=== PATIENT | female | born 1985 | race Caucasian/White ===

== ENCOUNTER 2016-12-08 13:13 | Outpatient (CLI) | payer MEDICARE | END 2016-12-08 13:14 | disposition home or self-care (01) | DX: N63 Unspecified lump in breast (principal) | CPT/HCPCS: 76642; G0204 ==

== ENCOUNTER 2017-10-09 13:40 | Outpatient (CLI) | payer MEDICARE | END 2017-10-09 13:41 | disposition EMS.NT | LOC: EMS 13:40 | PROVIDERS: ATTEND Surgery | DX: R07.9 Chest pain, unspecified (principal); R45.1 Restlessness and agitation ==

== ENCOUNTER 2018-03-29 16:50 | Outpatient (CLI) | payer OTHER, MEDICARE | END 2018-03-29 16:51 | disposition critical access hospital (66) | LOC: EMS 16:50 | PROVIDERS: ATTEND Surgery | DX: M54.5 Low back pain (principal); R25.2 Cramp and spasm; V43.62XA Car passenger injured in collision with other type car in traffic accident, initial encounter; Y92.414 Local residential or business street as the place of occurrence of the external cause | CPT/HCPCS: A0425; A0429 ==

== ENCOUNTER 2018-03-29 17:15 | Emergency (ER) | payer OTHER, MEDICARE ==
[2018-03-29] MEDS ORDERED: IBUPROFEN 600 MG TABLET PO STA (17:41)
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
[2018-03-29] MEDS ORDERED: oxyCODONE 5 MG TABLET PO STA (18:49)
[2018-03-29 19:04] VITALS: BP 127/104
== END 2018-03-29 19:06 | disposition home or self-care (01) ==
LOC: EDUNIT# → ED 17:15
DX: S32.10XA Unspecified fracture of sacrum, initial encounter for closed fracture (principal); V43.62XA Car passenger injured in collision with other type car in traffic accident, initial encounter
CPT/HCPCS: 72170; 72220; 99283; A9270

== ENCOUNTER 2018-09-26 01:02 | Emergency (ER) | payer MEDICARE, OTHER ==
[2018-09-26 01:17] VITALS: BP 140/89
--- NOTE | 2018-09-26 01:17 | ED Physician Documentation ---
PD HPI URI - Stated complaint Stated Complaint: LT EAR PAIN - Chief complaint Chief Complaint: Heent - History obtained from History obtained from: Patient - History of Present Illness Timing - onset: How many days ago (few) Timing duration: Days Timing details: Gradual onset, Still present (hurting "excruciating" the past 2 days or so) Associated symptoms: Ear pain, Nasal congestion. No: Fever, Dry cough Contributing factors: No: Sick contact, Travel Similar symptoms before: Has not had sx before Recently seen: Not recently seen Review of Systems Constitutional: denies: Fever, Chills, Myalgias Ears: reports: Loss of hearing, Ear pain. denies: Drainage/discharge Nose: reports: Congestion. denies: Rhinorrhea / runny nose Throat: denies: Sore throat Respiratory: denies: Cough GI: denies: Abdominal Pain, Nausea, Vomiting, Diarrhea Skin: denies: Rash, Lesions PD PAST MEDICAL HISTORY - Past Medical History Past Medical History: Yes Cardiovascular: None Respiratory: None Neuro: None Psych: Depression, Anxiety, Panic attacks - Past Surgical History Past Surgical History: No - Present Medications Home Medications: Ambulatory Orders Medication Instructions Recorded Confirmed FLUoxetine [PROzac] 100 mg PO DAILY 09/26/13 09/26/18 Cephalexin [Keflex] 500 mg PO TID #21 capsule 09/26/18 Cetirizine [ZyrTEC] 10 mg PO DAILY #15 tablet 09/26/18 Hydrocodone/Acetaminophen [[place] 1 each PO Q6H PRN #12 tablet 09/26/18 5-325 Tablet] Naproxen 500 mg PO BID #20 tablet 09/26/18 - Allergies Allergies/Adverse Reactions: Allergies Allergy/AdvReac Type Severity Reaction Status Date / Time acetaminophen [From Vicodin] Allergy Mild Rash Verified 09/26/18 01:06 bismuth subsalicylate Allergy unknown Verified 09/26/18 01:06 [From Pepto-Bismol] Sulfa (Sulfonamide Allergy unknown Verified 09/26/18 01:06 Antibiotics) Birthcontrol pills Allergy Intermediate Respiratory Uncoded 09/26/18 01:06 - Social History Does the pt smoke?: Yes Smoking Status: Current every day smoker Does the pt drink ETOH?: Yes Does the pt have substance abuse?: Yes - Immunizations Immunizations are current?: Yes - POLST Patient has POLST: No PD ED PE NORMAL - Vitals Vital signs reviewed: Yes - General General: Alert and oriented X 3, Well developed/nourished, Other (seesm uncomfortable) - HEENT HEENT: Moist mucous membranes, Pharynx benign. No: Ears normal (right is okay. Left with canal redness and some swelling medially. THe TM is also red without large swelling. No perf.) - Neck Neck: Supple, no meningeal sign, No adenopathy - Cardiac Cardiac: RRR, No murmur - Respiratory Respiratory: Clear bilaterally Results - Vitals Vitals: Vital Signs - 24 hr 09/26/18 09/26/18 01:05 01:46 Temperature 36.0 C L 36.5 C Heart Rate 129 H 90 Respiratory 20 14 Rate Blood Pressure 140/89 H O2 Saturation 99 98 Oxygen O2 Source Room air PD MEDICAL DECISION MAKING - ED course Complexity details: reviewed results, considered differential (ear TM is red with some canal inflammation as well. ), d/w patient Departure - Departure Disposition: 01 Home, Self Care Clinical Impression: Ear pain, left Otitis media Qualifiers: Otitis media type: suppurative Chronicity: acute Laterality: left Recurrence: non-recurrent Spontaneous tympanic membrane rupture: without spontaneous rupture Qualified Code(s): H66.002 - Acute suppurative otitis media without spontaneous rupture of ear drum, left ear Condition: Stable Record reviewed to determine appropriate education?: Yes Instructions: ED Otitis Media Acute Adult Prescriptions: Cephalexin [Keflex] 500 mg PO TID #21 capsule Cetirizine [ZyrTEC] 10 mg PO DAILY #15 tablet Hydrocodone/Acetaminophen [[place] 5-325 Tablet] 1 each PO Q6H PRN #12 tablet PRN Reason: Pain Naproxen 500 mg PO BID #20 tablet Comments: Take the cephalexin 3 times a day for a week for the infection. You can use the antibiotic eardrops a few times a day for the next few days. Naproxen anti- inflammatory twice daily for the next week or so. Cetirizine for fluid congestion in the middle ear. Add hydrocodone if needed for pains. Discharge Date/Time: 09/26/18 01:59
[2018-09-26] MEDS ORDERED: NAPROXEN 250 MG TABLET PO STA (01:35)
[2018-09-26] MEDS ORDERED: HYDROcod/ACETAM 5/325 MG TABLET PO STA (01:35)
[2018-09-26] MEDS ORDERED: NEOMYCIN/POLYMYX/HC OTIC DROPS LEFTEAR STA (01:35)
[2018-09-26] MEDS ORDERED: cephALEXin 250 MG CAPSULE PO STA (01:35)
== END 2018-09-26 01:59 | disposition home or self-care (01) ==
LOC: ED 01:02
DX: H66.002 Acute suppurative otitis media without spontaneous rupture of ear drum, left ear (principal); F17.200 Nicotine dependence, unspecified, uncomplicated
CPT/HCPCS: 99283; A9270

== ENCOUNTER 2018-11-25 21:39 | Outpatient (CLI) | payer SELFPAY | END 2018-11-25 21:40 | disposition critical access hospital (66) | LOC: EMS 21:39 | PROVIDERS: ATTEND Surgery | DX: H92.02 Otalgia, left ear (principal) | CPT/HCPCS: A0425; A0427 ==

== ENCOUNTER 2018-11-25 22:21 | Emergency (ER) | payer SELFPAY ==
[2018-11-25 22:28] VITALS: BP 117/69
--- NOTE | 2018-11-25 22:35 | ED Physician Documentation ---
History of Present Illness - Stated complaint Stated Complaint: EAR ACHE - Chief complaint Chief Complaint: Heent - History obtained from History obtained from: Patient, Family - Additonal information Additional information: Patient is a 33-year-old female presenting with left-sided ear pain over the past several days. Patient has recurrent visits for similar ear pain and diagnosis of otitis media per chart review. Patient reports that she has completed all antibiotic therapies and is no longer taking any antibiotics. Patient reports that she has used earwax drops to the left ear, but otherwise has not placed anything inside the ear canal.Patient also complains of purulent drainage from left ear, but denies changes to the external part of left ear. Patient and significant other also denies fever, URI symptoms, nasal congestion, rhinorrhea, sore throat.No significant improving or worsening factors to her symptoms noted. Review of Systems Constitutional: denies: Fever Ears: reports: Ear pain PD PAST MEDICAL HISTORY - Past Medical History Cardiovascular: None Respiratory: None Neuro: None Endocrine/Autoimmune: None Psych: Depression, Anxiety, Panic attacks - Past Surgical History Past Surgical History: No - Present Medications Home Medications: Ambulatory Orders Medication Instructions Recorded Confirmed FLUoxetine [PROzac] 100 mg PO DAILY 09/26/13 09/26/18 Cephalexin [Keflex] 500 mg PO TID #21 capsule 09/26/18 Cetirizine [ZyrTEC] 10 mg PO DAILY #15 tablet 09/26/18 Hydrocodone/Acetaminophen [[place] 1 each PO Q6H PRN #12 tablet 09/26/18 5-325 Tablet] Naproxen 500 mg PO BID #20 tablet 09/26/18 Amox/Clav 875/125 [Augmentin] 1 each PO Q12H #14 tablet 10/05/18 Hydrocodone/Acetaminophen 1 - 2 each PO Q6H PRN #14 tablet 10/05/18 [Hydrocodon-Acetaminophen 5-325] - Allergies Allergies/Adverse Reactions: Allergies Allergy/AdvReac Type Severity Reaction Status Date / Time bismuth subsalicylate Allergy unknown Verified 10/05/18 16:36 [From Pepto-Bismol] Sulfa (Sulfonamide Allergy unknown Verified 10/05/18 16:36 Antibiotics) Birthcontrol pills Allergy Intermediate Respiratory Uncoded 10/05/18 16:36 - Social History Does the pt smoke?: Yes Smoking Status: Current every day smoker Does the pt drink ETOH?: Yes Does the pt have substance abuse?: Yes - Immunizations Immunizations are current?: Yes - POLST Patient has POLST: No PD ED PE NORMAL - General General: Other (Disheveled, scabbing indicative of skin picking or recreational drug use of her face and other areas of body, moaning, sitting in position on bed, crying.) - HEENT HEENT: Atraumatic, Ears normal (Left TM nonbulging, non-erythematous without effusion. No debris in ear canal. No changes to external left ear such as swelling or redness. No mastoid tenderness.), Moist mucous membranes, Pharynx benign (No evidence of uvulitis, uvular deviation, peritonsillar abscess or other changes.) - Cardiac Cardiac: RRR, No murmur - Respiratory Respiratory: No respiratory distress, Clear bilaterally - Abdomen Abdomen: Normal bowel sounds, Soft, Non tender, Non distended - Derm Derm: Normal color, Warm and dry, No rash, Other (Skin changes as described above, appearance of skin picking.) - Neuro Neuro: No motor deficit, No sensory deficit - Psych Psych: Other (Extremely histrionic) Results - Vitals Vitals: Vital Signs - 24 hr 11/25/18 22:24 Heart Rate 105 H Respiratory 16 Rate Blood Pressure 117/69 O2 Saturation 98 Oxygen O2 Source Room air PD MEDICAL DECISION MAKING - ED course Complexity details: reviewed old records, considered differential, d/w patient, d/w family ED course: Patient presenting with left sided otalgia. Do not find evidence of otitis media, otitis externa, mastoiditis, ruptured TM. Patient also denies symptoms of URI, sinusitis, and headache including migraine. Physical exam does not reveal evidence of pharyngitis, tonsillitis, or peritonsillar abscess. Do have concern for drug-seeking behavior, particularly given multiple previous ED visits for similar symptoms and obtaining not only antibiotics, but narcotics. Patient also received narcotics by ambulance in route to the ED today. Patient has changes in her physical exam indicative of likely methamphetamine use as well. At this time, I do not find evidence of acute localized or systemic infection. Do not find evidence of other acute disease process and offered ibuprofen/Tylenol for discomfort, which was provided in ED. However, do not feel patient requires other interventions or medications while in the ED prescriptions for home. Discussed supportive cares, follow-up with ENT as she has recurrent ear complaints, and return precautions. Patient and significant other voiced understanding. Departure - Departure Disposition: Home, Self Care Clinical Impression: Acute ear pain Qualifiers: Laterality: left Qualified Code(s): H92.02 - Otalgia, left ear Condition: Good Instructions: ED Acute Pain [facility] Follow-Up: [facility] [place] [Provider Group] - Within 3 Days Comments: Recommend ibuprofen/Tylenol to help with pain and inflammation. Recommend contacting [facility] in [place] tomorrow to establish follow-up a ppointment as you have had multiple ear infections and have recurrent ear pain. Recommend against applying anything to the external part of the ear or inside the ear, even using Q-tips as this could cause discomfort. Return to ED sooner if experience pus drainage from the ear, fever, or other concerns.
[2018-11-25] MEDS ORDERED: ACETAMINOPHEN 325 MG TABLET PO STA (22:42)
[2018-11-25] MEDS ORDERED: IBUPROFEN 600 MG TABLET PO STA (22:42)
== END 2018-11-25 22:52 | disposition home or self-care (01) ==
LOC: EDUNIT# → ED 22:21
DX: H92.02 Otalgia, left ear (principal); F17.200 Nicotine dependence, unspecified, uncomplicated; F63.89 Other impulse disorders
CPT/HCPCS: 99282; 99283; A9270

== ENCOUNTER 2019-09-03 11:12 | Emergency (ER) | payer SELFPAY ==
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
[2019-09-03 12:42] VITALS: BP 100/60
== END 2019-09-03 12:41 | disposition home or self-care (01) ==
LOC: ED 11:12
DX: L03.811 Cellulitis of head [any part, except face] (principal); R59.0 Localized enlarged lymph nodes; F17.200 Nicotine dependence, unspecified, uncomplicated
CPT/HCPCS: 99282; 99283

== ENCOUNTER 2020-06-05 17:50 | Emergency (ER) | payer OTHER ==
[2020-06-05] MEDS ORDERED: IBUPROFEN 800 MG TABLET PO STA (18:08)
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
[2020-06-05 19:08] VITALS: BP 117/78
== END 2020-06-05 19:09 | disposition home or self-care (01) ==
LOC: ED 17:50
DX: S70.11XA Contusion of right thigh, initial encounter (principal); Y04.2XXA Assault by strike against or bumped into by another person, initial encounter; F17.200 Nicotine dependence, unspecified, uncomplicated
CPT/HCPCS: 73552; 99282; 99283; A9270

== ENCOUNTER 2020-11-13 08:00 | Outpatient (CLI) | payer MEDICARE | END 2020-11-13 23:59 | disposition home or self-care (01) | LOC: LAB.R 08:00 | PROVIDERS: ATTEND Physician Assistant | DX: H60.391 Other infective otitis externa, right ear (principal) | CPT/HCPCS: 87070; 87205 ==

== ENCOUNTER 2020-12-11 11:41 | Emergency (ER) | payer SELFPAY ==
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
[2020-12-11] MEDS ORDERED: ACETAMINOPHEN 325 MG TABLET PO STA (13:11)
[2020-12-11] MEDS ORDERED: CHERRY SYRUP 10 ML UDC PO ONE (13:11)
[2020-12-11] MEDS ORDERED: ACYCLOVIR 200 MG CAPSULE PO STA (13:11)
[2020-12-11] MEDS ORDERED: DEXAMETHASONE 10 MG/ML VIAL PO STA (13:11)
[2020-12-11 13:22] VITALS: BP 103/60
== END 2020-12-11 13:49 | disposition home or self-care (01) ==
LOC: ED 11:41
DX: G50.1 Atypical facial pain (principal); H92.01 Otalgia, right ear; F17.200 Nicotine dependence, unspecified, uncomplicated
CPT/HCPCS: 99282; 99284; A9270

== ENCOUNTER 2021-06-18 01:47 | Emergency (ER) | payer SELFPAY ==
[2021-06-18] MEDS ORDERED: LORazepam 2 MG/ML VIAL IM STA (02:00)
[2021-06-18] MEDS ORDERED: KETOROLAC 60 MG/2 ML VIAL IM STA (02:00)
[2021-06-18] MEDS ORDERED: HYDROmorphone 1 MG/ML CARPUJECT IM STA (02:11)
--- NOTE | 2021-06-18 06:14 | ED Physician Documentation ---
History of Present Illness - Stated complaint Stated Complaint: FACIAL PAIN - Chief complaint Chief Complaint: Heent - History obtained from History obtained from: Patient - History of Present Illness Timing: How many hours ago (4) Pain level max: 10 Pain level now: 10 Quality: sharp Improved by: nothing Worsened by: no exacerbating factors - Additonal information Additional information: c/o four hours of severe right-sided facial pain. no inciting incident, no exacerbating nor ameliorating factors. She is yelling and crying quite loudly in ED. H+P and ROS are delayed, as is gathering basic identifying information (simply getting her to say her first and last name took an inordinate amount of time) all because she is mostly screaming, yelling, and wailing loudly, even when asked to stop doing so just long enough to provide her name or yes/no answers to simple questions. she eventually is able to provide name and answers to some questions. She says this pain has been severe x 4 days although she has a chronic/recurrent component. She says she takes medications for it, one is flexeril, another begins with a c but is inaccessible right now (she is crying and thus very difficult to understand, but it sounds like whatever medication it is, it is in storage and she cannot get to it). She describes her problem as having been described to her as an impingement on a facial nerve that causes pain and slow damage to the nerve over time., as well as these unilateral, episodic severed headaches. When I ask if shes seen a neurologist, she says she is working on getting in to see one; I had her clarify that she has not yet seen a neurologist for these chronic, recurrent headaches. Review of Systems Constitutional: reports: Reviewed and negative Eyes: reports: Reviewed and negative Ears: reports: Reviewed and negative Nose: reports: Reviewed and negative Throat: reports: Reviewed and negative Cardiac: reports: Reviewed and negative Respiratory: reports: Reviewed and negative GI: reports: Reviewed and negative Skin: denies: Rash Musculoskeletal: reports: Reviewed and negative Neurologic: reports: Headache PD PAST MEDICAL HISTORY - Past Medical History Cardiovascular: None Respiratory: None Neuro: None Endocrine/Autoimmune: None Psych: Depression, Anxiety, Panic attacks - Past Surgical History Past Surgical History: No - Present Medications Home Medications: Ambulatory Orders Medication Instructions Recorded Confirmed carBAMazepine [TEGretol] 100 mg PO BID #28 tablet 06/18/21 - Allergies Allergies/Adverse Reactions: Allergies Allergy/AdvReac Type Severity Reaction Status Date / Time Sulfa (Sulfonamide Allergy Severe Respiratory Verified 06/18/21 01:54 Antibiotics) bismuth subsalicylate Allergy unknown Verified 06/18/21 01:55 [From Pepto-Bismol] Birthcontrol pills Allergy Intermediate Respiratory Uncoded 06/18/21 01:55 - Social History Does the pt smoke?: Yes Smoking Status: Current every day smoker Does the pt drink ETOH?: Yes Does the pt have substance abuse?: Yes - Immunizations Immunizations are current?: Yes - POLST Patient has POLST: No PD ED PE NORMAL - Vitals Vital signs reviewed: Yes - General General: Alert and oriented X 3, No acute distress (moaning loadly in plain), Well developed/nourished, Other (lying face-down on stretcher, no eye contact (keeps eyes closed except briefly for EOMI exam), holds hands over right side of fac) - HEENT HEENT: Atraumatic, PERRL, EOMI, Ears normal, Moist mucous membranes, Pharynx benign - Neck Neck: Supple, no meningeal sign, No adenopathy - Cardiac Cardiac: RRR, No murmur - Respiratory Respiratory: No respiratory distress, Clear bilaterally - Derm Derm: Normal color, Warm and dry, No rash - Free text exam Free text exam: no temporal scalp tenderness bilaterally. no rash, no erythema. external ear and auditory canal and TM are all normal (right side, where symptoms are). No facial tenderness to palpation, and no pain elicited with opening/closing jaw at TMJ (no click/pop). She describes her pain in a distribution from anterior to right ear and continuing anteriorly to anterior mid face to midline. Results - Vitals Vitals: Vital Signs - 24 hr 06/18/21 06/18/21 01:48 06:50 Temperature 35.2 C L 36.7 C Heart Rate 98 83 Respiratory 18 16 Rate Blood Pressure 135/82 H 127/83 H O2 Saturation 98 100 Oxygen O2 Source Room air PD MEDICAL DECISION MAKING - ED course Complexity details: reviewed old records, reviewed results, re-evaluated patient, considered differential, d/w patient ED course: She is given toradol and lorazepam IM which appeared to provide good relief , as she subsequently slept quiely for a few hours in ED. She was offered IM dilaudid, but she was very clear in wanting to avoid opiates. At the same time, she repeatedly requests something to just knock me out. Given that the toradol and lorazpam allowed for few hours of quiet sleep, and she was no longer wailing loudly upon waking, plan is d/c with rx for carbamazepine 100mg PO BID; her symptoms sound possibly c/w with trigeminal neuralgia and thus reasonable to trial on this first-line medication. I discussed this with her but she was difficult to get to focus on the discharge instruction review, was more interested in falling back asleep although she mumbled that she was understanding of the plan to discharge and that there was to be a prescription sent to her pharmacy Departure - Departure Disposition: 01 Home, Self Care Clinical Impression: Facial pain Condition: Good Instructions: ED Neuralgia Trigeminal Follow-Up: Norah Miranda ARNP [Physician No Access] - Prescriptions: carBAMazepine [TEGretol] 100 mg PO BID #28 tablet Comments: I suspect your pain is being caused by trigeminal neuralgia but this diagnosis is best made by a specialist (neurology); you should follow up with your primary care provider for further evaluation of these symptoms. A prescription for carbamazepine has been electronically submitted to [facility] in [place]. This is one of the more effective medications for trigeminal neuralgia. Discharge Date/Time: 06/18/21 06:50
[2021-06-18 06:51] VITALS: BP 127/83
== END 2021-06-18 06:50 | disposition home or self-care (01) ==
LOC: ED 01:47
DX: R51.9 Headache, unspecified (principal); F17.200 Nicotine dependence, unspecified, uncomplicated
CPT/HCPCS: 96372; 99283; 99284; J2060

== ENCOUNTER 2022-09-11 14:47 | Emergency (ER) | payer SELFPAY ==
[2022-09-11 15:02] VITALS: BP 110/74
[2022-09-11] MEDS ORDERED: MELOXICAM 7.5 MG TABLET PO STA (15:09)
[2022-09-11] MEDS ORDERED: methocarbamoL 500 MG TABLET PO STA (15:09)
--- NOTE | 2022-09-11 15:26 | ED Physician Documentation ---
History of Present Illness - Stated complaint Stated Complaint: NECK PX - Chief complaint Chief Complaint: General - History obtained from History obtained from: Patient - History of Present Illness Timing: How many days ago (2) Pain level max: 7 Pain level now: 4 - Additonal information Additional information: Patient is a 37-year-old female who presents to the emergency department left- sided neck pain. This started 2 days ago. She states that she has been sleeping on the floor/couch of a friend. She states the pain is gradually worsened throughout the day. Worse with movement, better with rest. No numbness or tingling. Has not taken anything for the pain. No fevers. No chills. Denies any possibility of . No chest pain. No back pain. Review of Systems Constitutional: denies: Fever, Chills Respiratory: denies: Cough GI: denies: Abdominal Pain, Nausea, Vomiting, Diarrhea : denies: Now EGA Skin: denies: Rash Musculoskeletal: denies: Back pain Neurologic: denies: Focal weakness, Confused, Headache PD PAST MEDICAL HISTORY - Past Medical History Cardiovascular: None Respiratory: None Neuro: None Endocrine/Autoimmune: None Psych: Depression, Anxiety, Panic attacks - Past Surgical History Past Surgical History: No - Present Medications Home Medications: Ambulatory Orders Medication Instructions Recorded Confirmed Meloxicam [Mobic] 7.5 mg PO BID PRN #20 tablet 09/11/22 methocarbamoL [Robaxin] 500 mg PO Q6H PRN #20 tablet 09/11/22 - Allergies Allergies/Adverse Reactions: Allergies Allergy/AdvReac Type Severity Reaction Status Date / Time Sulfa (Sulfonamide Allergy Severe Respiratory Verified 09/11/22 14:57 Antibiotics) bismuth subsalicylate Allergy unknown Verified 09/11/22 14:57 [From Pepto-Bismol] Birthcontrol pills Allergy Intermediate Respiratory Uncoded 06/18/21 01:55 - Social History Does the pt smoke?: Yes Smoking Status: Current every day smoker Does the pt drink ETOH?: Yes Does the pt have substance abuse?: Yes - Immunizations Immunizations are current?: Yes - POLST Patient has POLST: No PD ED PE NORMAL - Vitals Vital signs reviewed: Yes - General General: Alert and oriented X 3, No acute distress - HEENT HEENT: PERRL (No midline tenderness to palpation or percussion. No step-off or deformity. Mild paraspinal spasm left paracervical. Reproduces her pain.), Moist mucous membranes, Pharynx benign - Neck Neck: No bony TTP, No JVD, No bruit - Cardiac Cardiac: RRR, Strong equal pulses - Respiratory Respiratory: No respiratory distress, Clear bilaterally - Back Back: No spinal TTP - Derm Derm: Warm and dry - Neuro Neuro: Alert and oriented X 3, psychiatric therapist 2-12 intact, No motor deficit, No sensory deficit, Normal speech Eye Opening: Spontaneous Motor: Obeys Commands Verbal: Oriented GCS Score: 15 - Psych Psych: Normal mood, Normal affect Results - Vitals Vitals: Vital Signs - 24 hr 09/11/22 14:57 Temperature 37.2 C Heart Rate 112 H Respiratory 16 Rate Blood Pressure 110/74 O2 Saturation 96 Oxygen O2 Source Room air PD Medical Decision Making - ED course Complexity details: considered differential, d/w patient ED course: 37-year-old female with what appears to be a left-sided neck spasm. No indication for emergent imaging. No indication for CT scan, x-rays. No neurological deficits. We will place on anti-inflammatories and muscle relaxants for home and have her follow-up with her PCP for further care. Patient counseled regarding signs and symptoms for which I believe and urgent re-evaluation would be necessary. Patient with good understanding of and agreement to plan and is comfortable going home at this time This document was made in part using voice recognition software. While efforts are made to proofread this document, sound alike and grammatical errors may occur. Departure - Departure Disposition: 01 Home, Self Care Clinical Impression: Neck muscle spasm Condition: Good Instructions: ED Spasm Neck No Injury Follow-Up: your,doctor in 3 days if not better [Other] Prescriptions: Meloxicam [Mobic] 7.5 mg PO BID PRN #20 tablet PRN Reason: Pain methocarbamoL [Robaxin] 500 mg PO Q6H PRN #20 tablet PRN Reason: muscle spasm Comments: Your prescriptions are sent to [facility] in [place]. Please follow-up with your doctor for further care. Continue to gently stretch your neck at home. This should improve over the next 24 to 48 hours.
== END 2022-09-11 15:34 | disposition home or self-care (01) ==
LOC: ED 14:47
DX: M62.838 Other muscle spasm (principal); F17.200 Nicotine dependence, unspecified, uncomplicated
CPT/HCPCS: 99282; 99283; A9270

== ENCOUNTER 2023-05-12 06:29 | Emergency (ER) | payer SELFPAY ==
[2023-05-12] MEDS ORDERED: carBAMazepine 200 MG TABLET PO STA (07:17)
[2023-05-12] MEDS ORDERED: LORazepam 1 MG TABLET PO STA (07:18)
[2023-05-12] MEDS ORDERED: KETOROLAC 60 MG/2 ML VIAL IM STA (07:18)
[2023-05-12 08:37] VITALS: BP 97/55; O2SAT 100
--- NOTE | 2023-05-12 08:59 | ED Physician Documentation ---
History of Present Illness - Stated complaint Stated Complaint: L HEAD PX - Chief complaint Chief Complaint: Neuro - History obtained from History obtained from: Patient - Additonal information Additional information: Patient is a 38-year-old female presenting for evaluation of left-sided facial pain that she states has been severe since yesterday. Patient states that she gets approximately 2-3 episodes similar to this a month. She says that she was on a medication in the past that she was given in the emergency department but that it did not help. She was told in the past that this pain was related to a nerve issue.She does also admit to methamphetamine abuse and last used yesterday. No fever, chest pain, difficulty breathing. Denies recent trauma. Review of Systems Constitutional: denies: Fever Cardiac: denies: Chest pain / pressure Respiratory: denies: Dyspnea GI: denies: Abdominal Pain Neurologic: reports: Headache PD PAST MEDICAL HISTORY - Past Medical History Past Medical History: Yes Cardiovascular: None Respiratory: None Neuro: None Endocrine/Autoimmune: None Psych: Depression, Anxiety, Panic attacks, Other Other Past Medical History: Meth abuse - Past Surgical History Past Surgical History: No - Present Medications Home Medications: Ambulatory Orders Medication Instructions Recorded Confirmed carBAMazepine [TEGretol] 100 mg PO BID #28 tablet 05/12/23 - Allergies Allergies/Adverse Reactions: Allergies Allergy/AdvReac Type Severity Reaction Status Date / Time Sulfa (Sulfonamide Allergy Severe Respiratory Verified 05/12/23 06:41 Antibiotics) bismuth subsalicylate Allergy unknown Verified 05/12/23 06:41 [From Pepto-Bismol] Birthcontrol pills Allergy Intermediate Respiratory Uncoded 05/12/23 06:41 - Social History Does the pt smoke?: Yes Smoking Status: Current every day smoker Does the pt drink ETOH?: Yes Does the pt have substance abuse?: Yes Substance Use and Type: Meth - Immunizations Immunizations are current?: Yes - POLST Patient has POLST: No PD ED PE NORMAL - General General: Alert and oriented X 3, Well developed/nourished, Other (Moaning in pain, keeps eyes closed and clutching left side of her face) - HEENT HEENT: Atraumatic, PERRL, EOMI, Ears normal, Moist mucous membranes, Pharynx benign, Other (No rash or erythema, no fluctuance or swelling to face, normal jaw opening close) - Neck Neck: Supple, no meningeal sign, No bony TTP - Cardiac Cardiac: RRR, Strong equal pulses - Respiratory Respiratory: No respiratory distress, Clear bilaterally - Abdomen Abdomen: Soft, Non tender - Derm Derm: Warm and dry - Neuro Neuro: Alert and oriented X 3, No motor deficit, No sensory deficit, Normal speech Results - Vitals Vitals: Vital Signs - 24 hr 05/12/23 05/12/23 06:36 08:36 Temperature 36.7 C 36.6 C Heart Rate 115 H 77 Respiratory 20 14 Rate Blood Pressure 108/70 97/55 L O2 Saturation 98 100 Oxygen O2 Source Room air PD Medical Decision Making - ED course Complexity details: re-evaluated patient, d/w patient ED course: Patient presenting for evaluation of intense left-sided facial pain. Has had prior presentation here and her episodes are suggestive of trigeminal neuralgia. She has been on carbamazepine in the past but states that it did not help her. On review it appears that she was on 100 mg twice daily. I did explain that this is a starting dose and should be titrated up by her primary care provider and that usually higher doses are needed than what she was given but should be titrated up by an outside provider. She was given a dose of carbamazepine here along with IM Toradol and Ativan with improvement in her symptoms. She used to go to the [facility] clinic and was advised to call for a follow-up appointment. I will restart her on carbamazepine at 200 mg twice daily As she reports not having any improvement when she was on 100 mg twice daily. She is counseled on concerning symptoms to return for. Patient was ambulatory at discharge. Departure - Departure Disposition: 01 Home, Self Care Clinical Impression: Facial pain Condition: Good Instructions: ED Neuralgia Trigeminal Follow-Up: [facility] [Provider Group] [facility] [place] [Provider Group] Prescriptions: carBAMazepine [TEGretol] 100 mg PO BID #28 tablet Comments: Your symptoms today are concerning for a condition called trigeminal neuralgia. This is a condition which can cause intense pain related to one of the nerves in your face. This is usually diagnosed by a neurologist. I am starting you on a medication again that may help with your symptoms. However you do need close follow-up. This is the starting dose and often the doses need to be increased in a monitored setting until It becomes helpful. Please follow-up with your primary care provider at [facility] or one of the primary care clinics on the [place]. I have sent your prescription to [facility] in [place]. This medication can make you drowsy so I would not recommend driving while taking the medication. Forms: PCP List Discharge Date/Time: 05/12/23 09:15
== END 2023-05-12 09:15 | disposition home or self-care (01) ==
LOC: ED 06:29
DX: R51.9 Headache, unspecified (principal); F17.200 Nicotine dependence, unspecified, uncomplicated
CPT/HCPCS: 96372; 99283; 99284; A9270; J8499

== ENCOUNTER 2023-07-04 11:30 | Outpatient (CLI) | payer SELFPAY | END 2023-07-04 11:31 | disposition critical access hospital (66) | LOC: EMS 11:30 | DX: R51.9 Headache, unspecified (principal); R20.8 Other disturbances of skin sensation | CPT/HCPCS: A0425; A0429 ==

== ENCOUNTER 2023-07-04 11:50 | Emergency (ER) | payer SELFPAY ==
[2023-07-04 12:17] VITALS: BP 119/62; O2SAT 99
== END 2023-07-04 15:44 | disposition left against medical advice (07) ==
LOC: EDUNIT# → ED 11:50
DX: Z53.21 Procedure and treatment not carried out due to patient leaving prior to being seen by health care provider (principal)

== ENCOUNTER 2024-04-23 13:15 | Outpatient (CLI) | payer SELFPAY | END 2024-04-23 23:59 | disposition critical access hospital (66) | LOC: EMS 13:15 | DX: R23.8 Other skin changes (principal); R51.9 Headache, unspecified; R06.02 Shortness of breath; R45.1 Restlessness and agitation | CPT/HCPCS: A0425; A0429 ==

== ENCOUNTER 2024-04-23 13:54 | Emergency (ER) | payer SELFPAY ==
[2024-04-23 14:15] VITALS: BP 111/74
--- NOTE | 2024-04-23 14:16 | ED Physician Documentation ---
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 She thinks is a spider bite. It popped up 3 to 4 days ago. It is mildly painful. No fevers or chills. She has also had some nausea and would like something for that and some Tylenol. 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 I offered either medical help with that or social work evaluation which she declined. PD PAST MEDICAL HISTORY - Past Medical History Cardiovascular: None Respiratory: None Neuro: None Endocrine/Autoimmune: None GI: Hemorrhoids LEGISLATIVE ASSISTANT: None : None Psych: Depression, Anxiety, Panic attacks, Other Musculoskeletal: Other Derm: None Other Past Medical History: chronic hip pain - Past Surgical History Past Surgical History: No - Present Medications Home Medications: Ambulatory Orders Medication Instructions Recorded Confirmed carBAMazepine [TEGretol] 100 mg PO BID #28 tablet 05/12/23 Ondansetron Odt [Zofran] 4 mg TL Q6H PRN #10 tablet 04/23/24 clindamycin HCL [Cleocin HCl] 300 mg PO QID #28 cap 04/23/24 - Allergies Allergies/Adverse Reactions: Allergies Allergy/AdvReac Type Severity Reaction Status Date / Time Sulfa (Sulfonamide Allergy Severe Respiratory Verified 04/23/24 14:12 Antibiotics) bismuth subsalicylate Allergy unknown Verified 04/23/24 14:12 [From Pepto-Bismol] Birthcontrol pills Allergy Intermediate Respiratory Uncoded 04/23/24 14:12 - Social History Does the pt smoke?: Yes Smoking Status: Current every day smoker Does the pt drink ETOH?: Yes Does the pt have substance abuse?: Yes - Immunizations Immunizations are current?: Yes - POLST Patient has POLST: No PD ED PE NORMAL - Vitals Vital signs reviewed: Yes - General General: Alert and oriented X 3, No acute distress - HEENT HEENT: Other (There is a small wound about the size of a nickel over the angle of the jaw on the left with mild surrounding cellulitis. Nothing to culture.) - Neuro Neuro: Alert and oriented X 3, No motor deficit, No sensory deficit, Normal speech - Psych Psych: Normal mood, Normal affect Results - Vitals Vitals: Vital Signs - 24 hr 04/23/24 14:04 Temperature 36.7 C Heart Rate 99 Respiratory 20 Rate Blood Pressure 111/74 O2 Saturation 98 Oxygen O2 Source Room air PD Medical Decision Making - ED course ED course: She was offered IV fluids, social work consultation. She really just wanted antibiotics and some Tylenol and something for her nausea. She declined other interventions. Departure - Departure Disposition: 01 Home, Self Care Clinical Impression: Facial cellulitis Condition: Good Record reviewed to determine appropriate education?: Yes Instructions: ED Cellulitis Facial Prescriptions: clindamycin HCL [Cleocin HCl] 300 mg PO QID #28 cap Ondansetron Odt [Zofran] 4 mg TL Q6H PRN #10 tablet PRN Reason: Nausea / Vomiting Comments: I sent your prescriptions electronically to the [facility] in [place]. Call your doctor to arrange a follow-up appointment, make the next available appointment. In the interim, return anytime if worse or if new symptoms develop.
[2024-04-23] MEDS: CLINDAMYCIN 150 MG CAPSULE PO STA (14:26)
[2024-04-23] MEDS: ACETAMINOPHEN 500 MG TABLET PO STA (14:26)
[2024-04-23] MEDS: ONDANSETRON ODT 4 MG TABLET TL STA (14:26)
[2024-04-23 14:35] VITALS: O2SAT 97
== END 2024-04-23 14:34 | disposition home or self-care (01) ==
LOC: ED 13:54
DX: L03.211 Cellulitis of face (principal); F17.200 Nicotine dependence, unspecified, uncomplicated; F11.90 Opioid use, unspecified, uncomplicated
CPT/HCPCS: 99283; A9270; Q0162